=== PATIENT | male | born 1995 | race Caucasian/White ===

== ENCOUNTER 2016-11-14 10:16 | Emergency (ER) | payer OTHER ==
[~2016-11-14] VITALS: Ht 172.7 cm; Wt 79.0 kg
[2016-11-14 10:24] VITALS: BP 124/58
== END 2016-11-14 11:30 | disposition home or self-care (01) ==
LOC: ED 10:16
DX: K62.5 Hemorrhage of anus and rectum (principal)

== ENCOUNTER 2017-02-21 02:35 | Emergency (ER) | payer OTHER ==
[~2017-02-21] VITALS: Ht 170.2 cm; Wt 74.4 kg
[2017-02-21 02:54] VITALS: Ht 170.2 cm; Wt 74.4 kg
[2017-02-21 05:10] VITALS: BP 122/57
== END 2017-02-21 05:12 | disposition home or self-care (01) ==
LOC: ED 02:35
DX: T78.40XA Allergy, unspecified, initial encounter (principal); X58.XXXA Exposure to other specified factors, initial encounter
CPT/HCPCS: J0171; J1200; J7512